=== PATIENT | female | born 2000 | race Caucasian/White ===

== ENCOUNTER 2023-05-26 19:41 | Emergency (ER) | payer OTHER, SELFPAY ==
[2023-05-26 19:45] VITALS: BP 122/82; PULSE 109; RESP 18; TEMP 36.2; O2SAT 100; BMI 19.5
--- NOTE | 2023-05-26 19:52 | EX.ED.GENINJ ---
HPI <LEVI Feng - Last Filed: 05/26/23 20:25> History of Present Illness Chief Complaint: Laceration Narrative Narrative: Patient presenting today due to a laceration to her right index finger. She reports that she was using a dermaplane razor on her face and accidentally cut her finger. Her tetanus is up-to-date. She denies any other injury. She is not on blood thinners. Tetanus Immunization: <5 years PFSH <LEVI Feng - Last Filed: 05/26/23 20:25> PFSH Allergy/AdvReac Type Severity Reaction Status Date / Time iodine Allergy Rash Verified 05/26/23 19:45 Sulfa (Sulfonamide Allergy Vomiting Verified 05/26/23 19:45 Antibiotics) Surgical History (Updated 05/26/23 @ 20:17 by Diana Cintron) History of appendectomy ROS <LEVI Feng - Last Filed: 05/26/23 20:25> ROS ED Constitutional Constitutional ED: Denies chills or fever(s) Cardiovascular Cardiovascular: Denies chest pain Respiratory/Chest Respiratory/Chest: Denies cough or dyspnea Gastrointestinal Gastrointestinal: Denies abdominal pain, nausea or vomiting Musculoskeletal Musculoskeletal: Denies arthralgias or myalgias Integumentary Reports laceration Neurologic Neurologic: Denies weakness EXAM <LEVI Feng Last Filed: 05/26/23 20:25> Physical Exam Const Vital Signs: 05/26/23 19:45 Temperature 97.2 F L Temperature Source Temporal Pulse Rate 109 H Respiratory Rate 18 Blood Pressure 122/82 H Blood Pressure Mean 95 Pulse Ox 100 Oxygen Delivery Method Room Air Positive well nourished, well developed and no apparent distress General Appearance ED: well developed HEENT Reports normocephalic and head/scalp atraumatic Mouth ED: Yes moist mucous membranes normal Eyes PERRL and EOMs intact bilaterally Neck full ROM and supple Chest Wall inspection of chest normal Resp normal respiratory effort and clear to auscultation bilaterally Cardio regular rate and regular rhythm GI soft to palpation, non-tender, non-distended and no masses Back/Spine normal ROM and normal to inspection Extremity normal to inspection and full ROM Extremity Narrative: 2.5 cm full-thickness linear laceration to the dorsum of the right index finger between the PIP and DIP joints. Full flexion and extension at the MCP, PIP, and DIP joints of the right hand. Radial pulse 2+, good capillary refill, sensation intact. Neuro oriented x3, CN's II-XII intact bilaterally, moves all extremities, no focal motor deficits and no sensory deficits noted Sensorium / Orientation: awake and alert Psych mental status grossly normal and thought process normal Skin Skin Narrative: Right index finger laceration Rashes: No rashes noted <Dr. Norman Cardenas MD - Last Filed: 05/26/23 20:02> Physical Exam Const Vital Signs: 05/26/23 19:45 Temperature 97.2 F L Temperature Source Temporal Pulse Rate 109 H Respiratory Rate 18 Blood Pressure 122/82 H Blood Pressure Mean 95 Pulse Ox 100 Oxygen Delivery Method Room Air PROC <LEVI Feng - Last Filed: 05/26/23 20:25> Procedures Lacerations laceration: Length: 2.5 cm Depth: Sub Q Shape: Linear Prep: Chlorhexadine Laceration repair: Digital block, Irrigated, Lidocaine, Skin sutures and Wound explored Number of Sutures/Christiano: 3 Suture Information: Ethilon, Simple and 5-0 MDM <LEVI Feng - Last Filed: 05/26/23 20:25> [facility] MDM Narrative Medical decision making narrative: Patient presenting today with a laceration to her right index finger. Tetanus is up-to-date. This will be repaired and cleaned. Patient tolerated procedure well. She has been educated on signs of infection to look out for and reasons to return. She is to have sutures out in 7 to 10 days. She will be discharged home in stable condition and is comfortable with plan. I have personally performed a face to face assessment of the patient and have reviewed the IZAIAH Note. I performed a substantive portion of the visit including all aspects of the following. My ag findings include: History is 23-year-old female [id number] accidentally lacerated her right index finger on the radial side about an hour ago. No other complaints. Tetanus up-to-date. Exam is [23-year-old female no acute distress. Vital signs stable afebrile. HEENT exam normal. Lungs clear. Heart regular rhythm. Right hand. Full flexion extension all digits of the hand. There is about a 2 and half centimeter laceration right index finger just distal to the interphalangeal joint of the mid phalanx. Mild oozing of blood. It does gape. She has full flexion extension of the hand. There is no obvious tendon or joint or nerve involvement. Normal distal sensation. Will need to be suture repaired.] Medical Decision Making [local anesthetic. Suture repair. Wound care. Sutures out in 10 days.] Other additions or changes: [None] <Dr. Norman Cardenas MD - Last Filed: 05/26/23 20:02> [facility] Narrative Medical decision making narrative: Patient presenting today with a laceration to her right index finger. Tetanus is up-to-date. This will be repaired and cleaned. I have personally performed a face to face assessment of the patient and have reviewed the IZAIAH Note. I performed a substantive portion of the visit including all aspects of the following. My ag findings include: History is 23-year-old female [id number] accidentally lacerated her right index finger on the radial side about an hour ago. No other complaints. Tetanus up-to-date. Exam is [23-year-old female no acute distress. Vital signs stable afebrile. HEENT exam normal. Lungs clear. Heart regular rhythm. Right hand. Full flexion extension all digits of the hand. There is about a 2 and half centimeter laceration right index finger just distal to the interphalangeal joint of the mid phalanx. Mild oozing of blood. It does gape. She has full flexion extension of the hand. There is no obvious tendon or joint or nerve involvement. Normal distal sensation. Will need to be suture repaired.] Medical Decision Making [local anesthetic. Suture repair. Wound care. Sutures out in 10 days.] Other additions or changes: [None] Discharge Plan Triage Chief Complaint: Laceration ED Midlevel Provider: Rose Morrow ED Provider: Norman Cardenas Dx/Rx/DC Orders Clinical Impression: Finger laceration Instructions: ED Laceration, Hand: All Closures Primary Care Provider: Care Physician,No Primary Activity Restrictions/Additional Instructions: Keep wound clean and dry. Do not soak in dirty water. If it gets wet just dry it off thoroughly and carefully. Tylenol and Motrin for pain. Antibiotic ointment daily. Stitches out in no less than 7 and no more than 10 days. I take them out in 10 days. Disposition Disposition: Home, Self Care
--- OUTSIDE RECORDS SUMMARY | 2023-05-26 20:13 | XMS RPT_ITS | CCD ---
Author Name Unknown Address [address] [place] [address] Organization [facility] Care Team Providers Care Banana Ripening Room Supervisor Name Role Phone SELF, SELF Referring Unavailable CHRIS WONG A Primary Care Unavailable CHRIS WONG Attending Unavailable SELF, SELF Referring Unavailable BRYCE TAYLOR Primary Care Unavailable DESTINEE PINO Attending Unavailable DESTINEE PINO Referring Unavailable BRYCE TAYLOR Primary Care Unavailable DESTINEE PINO Attending Unavailable SELF, SELF Referring Unavailable BRYCE TAYLOR Primary Care Unavailable DESTINEE PINO Attending Unavailable SELF, SELF Referring Unavailable CHRIS WONG Primary Care Unavailable DAREN ANDRADE Attending Unavailabl e Bryce Taylor DO Primary Care Provider Allergies Allergy Classification Reported Allergen(s) Allergy Type Date of Onset Reaction(s) Facility (1 source) Iodine Drug Allergy 02-08-2017 [facility] (1 source) Sulfonamides (Antibiotic) Propensity to adverse reactions to drug 02-08-2017 [facility] Medications Current Medications Medication Drug Class(es) Dates Sig (Normalized) Sig (Original) clindamycin 10 mg/ml topical lotion (1 source) Lincosamide Antibacterial Start: 05-10-2020 clindamycin 1 % Lotion lotion Indications: Acne vulgaris Apply 1 Application topically daily. use thin film on affected area 60 mL 1 05/10/2020 Active levonorgestrel 0.048309 mg/hr intrauterine system (1 source) Progestin, Progestin-containin g Intrauterine Device Start: 12-07-2020 levonorgestrel (LILETTA) 19.5 mcg/day IUD 1 Intra Uterine Device naproxen 375 mg oral tablet (1 source) Nonsteroidal Anti-inflammatory Drug Start: 02-08-2017 take 1 tablet by mouth twice daily at mealtime naproxen 375 MG Tab take 1 tablet by mouth 2 times daily with meals. 42 tablet 0 02/08/2017 Active tretinoin 0.25 mg/ml topical cream (1 source) Retinoid Start: 05-10-2020 tretinoin 0.025 % Cream cream Indications: Acne vulgaris Apply a pea-sized amount to the entire face every other night 20 g 3 05/10/2020 Active Problems Problem Classification Problem Date Documented Date Episodic/Chronic Contraceptive and procreative management (1 source) Intrauterine contraceptive device in situ; Translations: [Encounter for routine checking of intrauterine contraceptive device] Episodic Sprains and strains (1 source) Sprain of medial collateral ligament of knee; Translations: [Sprain of medial collateral ligament of left knee, initial encounter] Onset: 02-08-2017 02-08-2017 Episodic Results Test Name Value Interpretation Reference Range Facil ity Vital Signs Date Time Vital Sign Value Performing Clinician Jaskarani julioy 12-28-2020 16:28-0400 Body height 172.7 cm Destinee Raghu DENT Work Phone: [facility] 12-28-2020 16:28-0400 Body mass index (BMI) [Percentile] Per age and sex 18.35 % Destinee Raghu DENT Work Phone: [facility] 12-28-2020 16:28-0400 Body mass index (BMI) [Ratio] 19.16 kg/m2 Destinee Raghu DENT Work Phone: [facility] 12-28-2020 16:28-0400 Body weight 57.15 kg Destinee Raghu DENT Work Phone: [facility] 12-28-2020 16:28-0400 Diastolic blood pressure 70 mm[Hg] Destinee DENT Work Phone: [facility] 12-28-2020 16:28-0400 Heart rate 44 /min Destinee Raghu DENT Work Phone: [facility] 12-28-2020 16:28-0400 SaO2% (BldA) [Mass fraction] 94 % Destinee Pino LANCE CREWMEMBER/MLRS SERGEANT-ILLUMINATOR Work Phone: [facility] 12-28-2020 16:28-0400 Systolic blood pressure 116 mm[Hg] Destinee Pino APRN-ILLUMINATOR Work Phone: [facility] Encounters Encounter Date Encounter Type Care Provider Facility Start: 06-07-2021 ambulatory SELF SELF Facility:[facility] Start: 06-02-2021 ambulatory SELF SELF Facility:[facility] Start: 12-28-2020 ambulatory SELF SELF Facility:[facility] Start: 12-28-2020 End: 12-28-2020 Office outpatient visit 10 minutes Destinee Pino APRN-ILLUMINATOR Work Phone: [facility] Plan of Treatment Date Care Activity Detail Author Start: 12-28-2021 End: 12-28-2021 Patient encounter procedure 12/28/2021 Office Visit SYSTEM ADMINISTRATION MANAGER Destinee Pino, LANCE CREWMEMBER/MLRS SERGEANT-ILLUMINATOR [address] [place] [address] [facility] Start: 10-20-2021 GONORRHEA SCREEN GONORRHEA SCREEN [facility] Start: 10-20-2021 Screening for Chlamydia trachomatis CHLAMYDIA SCREEN [facility] Start: 01-18-2021 Influenza vaccination INFLUENZA VACCINE (#1) [facility] Start: 01-24-2020 Tetanus vaccination TETANUS [facility] Start: 2018 Meningococcal conjugate vaccination MCV4 VACCINE (1 - 2-dose series) [facility] Start: 2017 HIV screening HIV SCREENING DISCUSSION [facility] Start: 2013 Vaccination for human papillomavirus HPV VACCINE ADOL (1 - 2-dose series) [facility] Start: 2002 Hepatitis C antibody, confirmatory test HEPATITIS C VIRUS SCREENING [facility] Payers Date Payer Category Payer Unknown [id number] 2016 Unknown [employer] [id number] 2016-Present [address] [place] [address] [id number] 1963 Unknown [id number] 1963 Unknown [id number] 1963 Unknown [id number] 1963 Unknown [id number] 1963 Unknown [id number] Social History Date Type Detail Facility Start: 10-20-2020 Tobacco smoking status NHIS Never sm [facility] Start: 10-20-2020 Tobacco use and exposure Never used [facility] Start: 2002 Sex Assigned At Not on file O [facility] Exposure to SARS-CoV -2 (event) Not sure [facility] History of Present illness Narrative 12-28-2020 Destinee Pino APRN-JUANY - 12/28/2020 4:30 PM EDT Note Date & Type Note Facility 12-28-2020 History of Present illness Narrative Subjective: Sofi Taylor is here after insertion of levonorgestrel IUD one month ago. Patient's last menstrual period was 12/06/2020 (exact date). After insertion she did have cramping that lasted for a couple of days And bleeding that lasted a couple of days Sexual activity since insertion: yes- with no associated pain Fevers: No Objective: BP 116/70 (BP Location: Left arm, BP Position: Sitting) Pulse (!) 44 Ht 5' 8 (1.727 m) Wt 126 lb (57.2 kg) SpO2 94% BMI 19.16 kg/m Smoking Status Never Smoker General appearance: alert, well appearing, and in no distress. Abdominal exam: soft, nontender, nondistended, no masses or organomegaly. Pelvic Exam: Sand Cutter Operator present No VULVA: normal appearing vulva with no masses, tenderness or lesions, VAGINA: normal appearing vagina with normal color and discharge, no lesions and no vaginal discharge, CERVIX: normal appearing cervix without discharge or lesions and string present at the external os, UTERUS: uterus is normal size, shape, consistency and nontender. Assessment: Sofi is here for post IUD check. The IUD appears to be appropriately situated, there are no signs of infection, migration or expulsion. She was instructed that she should continue coming in for routine annual exams and cervical cytologic screening as appropriate for her. Leaving for college next week documented in this encounter [facility] Evaluation note Note Date & Type Note Facility documented in this encounter [facility] Summary Purpose Family History No Family History Records Found Advance Directives No Advanced Directives Records Found Additional Source Comments INFORMATION SOURCE (unrecogn ized section and content) Reason for Visit (unrecogniz ed section and content) Care Teams (unrecognized sec tion and content) FOR RECORDS PERTAINING TO PATIENTS WHO ARE OR HAVE BEEN ENROLLED IN A CHEMICAL DEPENDENCY/SUBSTANCEABUSE PROGRAM, SOME INFORMATION MAY BE OMITTED. This clinical summary was aggregated from multiple sources. Caution should be exercised in using it in the provision of clinical care. This summary normalizes information from multiple sources, and as a consequence, information in this document may materially change the coding, format and clinical context of patient data. In addition, data may be omitted in some cases. CLINICAL DECISIONS SHOULD BE BASED ON THE PRIMARY CLINICAL RECORDS. [employer] provides no warranty or guarantee of the accuracy or completeness of information in this document.
[2023-05-26] MEDS: Lidocaine 1% (20 ml mdv) 20 ML Vial 10 ML INFILT (20:19)
[2023-05-26 20:34] VITALS: BP 121/80; PULSE 89; RESP 16; O2SAT 99
== END 2023-05-26 20:36 | disposition home or self-care (01) ==
PROVIDERS: Emergency Provider Emergency Medicine; Visit Provider Emergency Medicine
DX: S61.210A Laceration without foreign body of right index finger without damage to nail, initial encounter (principal); W26.8XXA Contact with other sharp object(s), not elsewhere classified, initial encounter
CPT/HCPCS: 12001; 99283